=== PATIENT | male | born 1955 | race Caucasian/White ===

== ENCOUNTER 2018-05-11 12:08 | Day surgery (SDC) | payer BC ==
[~2018-05-11] VITALS: Ht 177.8 cm; Wt 91.6 kg
[~2018-05-11 12:08] MED LIST: ACID REDUCER75 MG PO; ASPIRIN325 MG PO; ATENOLOL50 MG PO; DYAZIDE 37.5-251 EA PO; FLOVENT DISKUS50 MCG INH; SUMATRIPTAN SU100 MG PO; ZYRTEC10 M3 PO
--- NOTE | 2018-05-11 14:09 | NUR ---
05/11/18 Adam9 Angelica Vu 1403 PT ARRIVED ON 3L VIA NC. PT DROWSY BUT TALKNG TO RN. PT REORINETED TO PACU. RESP EVEN AND UNLABORED.
--- NOTE | 2018-05-11 21:52 | OR ---
[facility] [address] [place], [place] [address] Signed DATE OF OPERATION: 05/11/2018 SURGEON: Kiana Bishop MD PREOPERATIVE DIAGNOSES: 1. Persistent gastroesophageal reflux symptoms. 2. Colon screening. POSTOPERATIVE DIAGNOSES: 1. Hiatal hernia with distal esophagitis. 2. Extensive diverticulosis of colon. 3. Mild hyperplasia of ileocecal valve. PROCEDURES: 1. Esophagogastroduodenoscopy with biopsy. 2. Total colonoscopy to cecum with biopsy of ileocecal valve. ANESTHESIA: Intravenous sedation, fentanyl 150 mcg, Versed 6 mg (total). INDICATION: A 62-year-old white man is a patient of Rm Pulido PA-C and is referred for persistent gastroesophageal reflux and epigastric pain symptoms. He is taking Zantac for this. He is admitted to undergo upper endoscopy to better characterize the problem. He is not particularly having dysphagia at this time. He does have a brother with Parks's esophagus. He has not had esophageal evaluation in the past. Additionally, the patient is here for a screening colonoscopy. His last colonoscopy was in 2010, which showed diverticulosis and he had a diminutive polyp in 2003. He understands the risks of bleeding, infection, perforation related upper endoscopy and colonoscopy and wished to proceed. FINDINGS: Upper endoscopy demonstrated a moderate to large-sized hiatal hernia with obvious distal ulcerative esophagitis. There was no sign of obvious Parks's epithelium. Stomach and duodenum are reasonably normal otherwise. Colonoscopy demonstrated very well prepared colon with extensive diverticulosis extending from the sigmoid to the right colon. He had mild hyperplasia of the ileocecal Electronically Signed By: KIANA BISHOP MD 05/11/18 2152 PATIENT NAME: NOVA DENNY OPERATIVE REPORT DATE OF : 53 REPORT #: [id number] PHYSICIAN: KIANA BISHOP MD PCP: FAHEEM RUIZ PAC REPORT IS CONFIDENTIAL AND NOT TO BE RELEASED WITHOUT AUTHORIZATION [facility] [address] [place], [place] [address] Signed valve. A biopsy was obtained, but he did not have obvious adenomatous change. There were no other findings of concern. DESCRIPTION OF PROCEDURE: The patient was brought to the endoscopy suite and given topical Hurricaine spray hypopharyngeal anesthesia and placed in lateral decubitus position given intravenous sedation to the point of slurred speech and nystagmus. A bite block was placed. An Olympus video upper endoscope was passed in the hypopharynx. The vocal cords appeared normal. The scope was advanced to the esophagus throughout its length. It was normal except in the distal portion where there was obvious ulcerative esophagitis. No sign of neoplasm, stricture, varices, or Parks's epithelium particularly. Scope was advanced to the stomach, which was insufflated with air. Rugal folds appeared normal. Pylorus was normal. Scope was passed through into the duodenum, which was normal. Biopsies were taken of the duodenum to assess for celiac disease and the scope was withdrawn to the antrum of the stomach for biopsies for colon pathologic testing. Retroflexed view was undertaken showing a moderate to large-sized hiatal hernia. The scope was withdrawn to the distal esophagus where biopsies were taken and further withdrawal to the mid esophagus for biopsies were also taken. There was mild felinization of the esophagus, but no clear evidence of inflammatory change. Careful withdrawal of scope showed no other findings. The table was rotated and additional sedation was given. Digital rectal examination was performed, which was normal. An Olympus video colonoscope was passed in the rectum and manipulated throughout the colon ultimately intubating the cecum itself. The ileocecal valve was identified and appeared to have a hyperplastic appearing change, not adenomatous particularly. Biopsies obtained to distinguish this. Narrow band imaging was used as well. The scope was withdrawn from that point and examination throughout showed only diverticulosis extending from the right colon throughout the entire colon except of course of the rectum. Retroflexed view of the rectum was normal. Scope was removed and the patient was taken to recovery room in good condition. CONCLUDING DIAGNOSES: 1. Extensive diverticulosis of colon. 2. Hiatal hernia with distal esophagitis (ulcerative). PLAN: Change Zantac to Prilosec 20 mg daily. Maintain high-fiber diet. We will see him back in the office in 4 to 6 weeks and assess his progress. Electronically Signed By: KIANA BISHOP MD 05/11/18 215 PATIENT NAME: NOVA DENNY OPERATIVE REPORT DATE OF : 53 REPORT #: [id number] PHYSICIAN: KIANA BISHOP MD PCP: FAHEEM RUIZ PAC REPORT IS CONFIDENTIAL AND NOT TO BE RELEASED WITHOUT AUTHORIZATION [facility] [address] [place] [id number] Signed Kiana Bishop MD JM/MODL /[id number] cc: LAURE Barlow Copies: ~ Electronically Signed By: KIANA BISHOP MD 05/11/18 2152 PATIENT NAME: NOVA DENNY OPERATIVE REPORT DATE OF : 53 REPORT #: [id number] PHYSICIAN: KIANA BISHOP MD PCP: FAHEEM RUIZ PAC REPORT IS CONFIDENTIAL AND NOT TO BE RELEASED WITHOUT AUTHORIZATION
== END 2018-05-11 14:55 | disposition home or self-care (01) ==
LOC: OPS 12:08 → DS 12:08 → OPS 13:00 → DS 13:00 → OPS 14:55
PROVIDERS: Surgery
PROC: 0DB28ZX Excision of Middle Esophagus, Via Natural or Artificial Opening Endoscopic, Diagnostic (ICD-10-PCS; 2018-05-11)
PROC: 0DB38ZX Excision of Lower Esophagus, Via Natural or Artificial Opening Endoscopic, Diagnostic (ICD-10-PCS; 2018-05-11)
PROC: 0DBC8ZX Excision of Ileocecal Valve, Via Natural or Artificial Opening Endoscopic, Diagnostic (ICD-10-PCS; 2018-05-11)
PROC: 0DB98ZX Excision of Duodenum, Via Natural or Artificial Opening Endoscopic, Diagnostic (ICD-10-PCS; principal; 2018-05-11 13:00)
PROC: 0DB78ZX Excision of Stomach, Pylorus, Via Natural or Artificial Opening Endoscopic, Diagnostic (ICD-10-PCS; 2018-05-11 13:00)
DX: Z12.11 Encounter for screening for malignant neoplasm of colon (principal); K57.30 Diverticulosis of large intestine without perforation or abscess without bleeding; K21.0 Gastro-esophageal reflux disease with esophagitis; K44.9 Diaphragmatic hernia without obstruction or gangrene; K63.89 Other specified diseases of intestine; I10 Essential (primary) hypertension; Z98.890 Other specified postprocedural states; Z86.010 Personal history of colon polyps
CPT/HCPCS: 99153; G0500; J2250; J3010; J7120

== ENCOUNTER 2019-02-20 21:11 | Emergency (ER) | payer BC ==
[~2019-02-20] VITALS: Ht 182.9 cm; Wt 91.6 kg
[2019-02-20] MEDS ORDERED: LO-DOSE ASPIRIN81 M1 PO (21:45)
[2019-02-20] MEDS ORDERED: OMEPRAZOLE40 MG PO (21:45)
[2019-02-20] MEDS ORDERED: TRANSDERM-SCOP1 EACH TD (23:14)
== END 2019-02-20 23:39 | disposition home or self-care (01) ==
LOC: ED 21:11
DX: R51 Headache (principal); H81.399 Other peripheral vertigo, unspecified ear; I10 Essential (primary) hypertension; Z87.891 Personal history of nicotine dependence; Z79.899 Other long term (current) drug therapy
CPT/HCPCS: 70450; 80053; 85025; 99284-25; J1200; J1885; J2765

== ENCOUNTER 2019-10-11 12:53 | Day surgery (SDC) | payer BC ==
[~2019-10-11] VITALS: Ht 177.8 cm; Wt 95.2 kg
--- NOTE | ~2019-10-11 | OR ---
[facility] [address] [place], [place] [address] Draft DATE OF OPERATION: 10/11/2019 SURGEON: Kiana Bishop MD PREOPERATIVE DIAGNOSIS: Known gastroesophageal reflux, recent episode of nocturnal aspiration (severe). POSTOPERATIVE DIAGNOSIS: Hiatal hernia without associated esophagitis, gastritis or duodenitis. PROCEDURE: Esophagogastroduodenoscopy with biopsy. ANESTHESIA: Intravenous sedation, fentanyl 100 mcg, Versed 5 mg. INDICATION: This 63-year-old white man is a patient of Dr. Nova Denny and is known to have reflux, generally well controlled with PPI medication. He had an episode of nocturnal severe aspiration at least two weeks ago, which was really quite alarming to him. He is much better now that he is not eating late in the evening before bed and he continues to take Prilosec on a daily basis with good clinical result. He has no dysphagia. He is admitted at this time to undergo upper endoscopy. He understands the risks of bleeding, infection, and perforation. FINDINGS: The esophagus showed no sign of neoplasm, obvious Parks's epithelium or neoplasm or stricture. There was a hiatal hernia, which was relatively large in aggregate. The stomach itself was normal as was the duodenum. Biopsies were obtained throughout. CLOtest biopsy was -15 minutes postprocedure. It appears he has only the hiatal hernia, which likely accounted for the reflux episode and aspiration, but currently is free of problem. DESCRIPTION OF PROCEDURE: The patient was brought to the endoscopy suite, given topical Hurricaine spray hypopharyngeal anesthesia and placed in lateral decubitus position. A bite block was placed. Intravenous sedation was given to point of slurred speech and nystagmus with full cardiopulmonary monitoring. An Olympus video upper endoscope was passed in the hypopharynx. Vocal cords visualized. PATIENT NAME: NOVA DENNY OPERATIVE REPORT DATE OF : 53 REPORT #: [id number] PHYSICIAN: KIANA BISHOP MD PCP: NOVA EDNNY MD REPORT IS CONFIDENTIAL AND NOT TO BE RELEASED WITHOUT AUTHORIZATION [facility] [address] [place], [place] [address] Draft The cords had no sign of nodule. There was mild edema in the arytenoid folds. Scope was advanced to the esophagus without problem. Throughout its length, it was entirely normal. Narrow band imaging confirmed this as well. There was a somewhat irregular Z-line, but I would not claim this to be Parks's esophagus in any significant way. The scope was passed to the stomach, which was insufflated with air. Rugal folds were normal as was the pylorus. The scope was passed through it into the duodenum, which was normal. Biopsies were taken of the duodenum to assess for celiac disease. Careful withdrawal through the pyloric channel showed no sign of ulceration or stricture. The scope was withdrawn further and biopsies taken of the antrum and more proximal stomach for both ISAIAH and pathologic testing. Retroflexed view did show a sizable hiatal hernia in aggregate. There was no sign of Nolberto's ulcer. Scope was withdrawn to the distal esophagus where multiple biopsies were obtained. Narrow band imaging was used as well. Although the Z-line was rather irregular, this should not be mistaken for zonia Parks's esophagus. The scope was withdrawn and the midesophagus was biopsied as well. Further withdrawal showed no sign of proximal esophageal abnormalities. Re-evaluation of the vocal cords showed them to be normal without sign of nodule and less signs of edema than originally noted. The scope was removed. The patient was taken to recovery room in good condition. CONCLUDING DIAGNOSIS: Hiatal hernia with clinical gastroesophageal reflux and prior episode of significant aspiration, now resolved. Mindful of the potential risks of PPI use, I would recommend that he stay on Prilosec 20 mg a day. He should avoid eating late in the evening as much as possible. Operative management of hiatal hernia and reflux is always an option depending on patient preference. PLAN: We will see him back in 4-6 weeks and review his pathology reports and assess his progress. Kiana Bishop MD JM/MODL /[id number] PATIENT NAME: NOVA DENNY CAROLINE OPERATIVE REPORT DATE OF : 53 REPORT #: [id number] PHYSICIAN: KIANA BISHOP MD PCP: NOVA DENNY MD REPORT IS CONFIDENTIAL AND NOT TO BE RELEASED WITHOUT AUTHORIZATION [facility] [address] [place], [place] [address] Draft cc: Nova Denny MD Copies: NOVA DENNY DMD ~ PATIENT NAME: NOVA DENNY OPERATIVE REPORT DATE OF : 53 REPORT #: [id number] PHYSICIAN: KIANA BISHOP MD PCP: NOVA DENNY MD REPORT IS CONFIDENTIAL AND NOT TO BE RELEASED WITHOUT AUTHORIZATION
[~2019-10-11 12:53] MED LIST changes: +LO-DOSE ASPIRIN81 M1 PO; +OMEPRAZOLE40 MG PO; +TRANSDERM-SCOP1 EACH TD
--- NOTE | 2019-10-11 13:54 | NUR ---
10/11/19 1354 [facility] [address]-PT ARRIVES TO PACU AWAKE ON RA. PT DENIES PAIN/NAUSEA. SAT S>90%. OTHER VSS.
--- NOTE | 2019-10-12 14:33 | PATH ---
[facility] [address] [facility] [place] [place] [address] Signed SPECIMEN(S): A DUODENUM SPECIMEN(S): B ANTRUM/PYLORUS SPECIMEN(S): C LOWER ESOPHAGUS SPECIMEN(S): D MIDDLE ESOPHAGUS SPECIMEN SOURCE: A. DUODENUM B. ANTRUM/PYLORUS C. LOWER ESOPHAGUS D. MIDDLE ESOPHAGUS CLINICAL HISTORY: Abdominal pain, GERD. Postop: Hiatal hernia. MICROSCOPIC DESCRIPTION: A, B. Histologic sections of all submitted blocks are examined by light microscopy. These findings, together with the gross examination, support the pathologic diagnosis. C. Sections reveal biopsies of esophageal mucosa composed of stratified squamous nonkeratinizing epithelium. The basal cell layer is not prominent and rete ridges are not elongated. A rare intraepithelial lymphocyte is seen. Intraepithelial eosinophils are not a feature. No glandular mucosa is present. There is no evidence of malignancy or atypia. D. Sections reveal biopsies of esophageal mucosa histologically similar to that described above in C. LJA:cml FINAL PATHOLOGIC DIAGNOSIS: A. Mucosa, duodenum, biopsy: - Duodenal mucosa with normal villous architecture, no microscopic pathologic diagnosis. B. Mucosa, antrum, biopsy: - Minimal to mild inactive chronic gastritis. - Negative for the presence of bacteria morphologically consistent with Helicobacter on HE stained sections. C. Mucosa, lower esophagus, biopsy: - No microscopic pathologic diagnosis. D. Mucosa, mid esophagus, biopsy: - No microscopic pathologic diagnosis. LJA:cml:C2NR PATIENT NAME: NOVA DENNY PATHOLOGY DATE OF : 53 REPORT #: [id number] PHYSICIAN: DIONNE DINH PCP: NOVA DENNY MD REPORT IS CONFIDENTIAL AND NOT TO BE RELEASED WITHOUT AUTHORIZATION [facility] [address] [place], [place] [address] Signed GROSS DESCRIPTION: Four specimens are received in four containers, labeled "RJ." A. The specimen, labeled "RJ, 1" and "duodenum" on the requisition, is received in formalin and consists of a 0.3 cm soft vargas tissue fragment that is submitted in toto in cassette A1. B. The specimen, labeled "RJ, 2" and "antrum/pylorus" on the requisition, is received in formalin and consists of a 0.3 cm soft pink tissue fragment that is submitted in toto in cassette B1. C. The specimen, labeled "RJ, 3" and "lower esophagus" on the requisition, is received in formalin and consists of two soft pink to elliott flat tissue fragments that measure 0.2 and 0.3 cm that are submitted in toto in cassette C1. D. The specimen, labeled "RJ, 4" and "middle esophagus" on the requisition," is received in formalin and consists of three soft elliott flat tissue fragments that vary from 0.2-0.4 cm and are submitted in toto in cassette D1. SS (under the direct supervision of a pathologist) The Gross Description was prepared using a voice recognition system. The report was reviewed for accuracy; however, sound-alike word errors, addition and/or deletions may occur. If there is any question about this report, please contact Client Services. PERFORMING LABORATORY: The technical component was performed by [employer], [address] [place] [id number] (Applications Programmer: Madalyn Luke MD; CLIA# [id number]). Professional interpretation was performed by [employer], [facility], [address] [place] [address] (CLIA# [id number]). Diagnostician: Onofre Ledesma MD Pathologist Electronically Signed 10/12/2019 Copies: ~ PATIENT NAME: NOVA DENNY PATHOLOGY DATE OF : 53 REPORT #: [id number] PHYSICIAN: DIONNE DINH PCP: NOVA DENNY MD REPORT IS CONFIDENTIAL AND NOT TO BE RELEASED WITHOUT AUTHORIZATION
== END 2019-10-11 14:24 | disposition home or self-care (01) ==
LOC: OPS 12:53 → DS 14:00 → OPS 14:24
PROVIDERS: Surgery
PROC: 0DB78ZX Excision of Stomach, Pylorus, Via Natural or Artificial Opening Endoscopic, Diagnostic (ICD-10-PCS; 2019-10-11)
PROC: 0DB38ZX Excision of Lower Esophagus, Via Natural or Artificial Opening Endoscopic, Diagnostic (ICD-10-PCS; 2019-10-11)
PROC: 0DB28ZX Excision of Middle Esophagus, Via Natural or Artificial Opening Endoscopic, Diagnostic (ICD-10-PCS; 2019-10-11)
PROC: 0DB98ZX Excision of Duodenum, Via Natural or Artificial Opening Endoscopic, Diagnostic (ICD-10-PCS; principal; 2019-10-11 14:00)
DX: T17.910A Gastric contents in respiratory tract, part unspecified causing asphyxiation, initial encounter (principal); K29.50 Unspecified chronic gastritis without bleeding; K21.9 Gastro-esophageal reflux disease without esophagitis; K44.9 Diaphragmatic hernia without obstruction or gangrene; G43.909 Migraine, unspecified, not intractable, without status migrainosus; I10 Essential (primary) hypertension; Z86.010 Personal history of colon polyps; Z79.899 Other long term (current) drug therapy; Z87.891 Personal history of nicotine dependence
CPT/HCPCS: G0500; J2250; J3010; J7121

== ENCOUNTER 2020-07-24 07:55 | Day surgery (SDC) | payer BC ==
[~2020-07-24] VITALS: Ht 177.8 cm; Wt 95.0 kg
--- NOTE | 2020-07-24 11:03 | NUR ---
07/24/20 1103 Layla Obando 1055- PT ARRIVES TO PACU NONAROUSABLE TO NOXIOUS STIMULI WITH AN OPA IN PLACE. RESP EVEN AND UNLABORED. OXYGEN SAT HIGH 90'S TO 100% ON 6L VIA MASK.
[2020-07-24] MEDS ORDERED: IBUPROFEN600 MG PO (11:17)
[2020-07-24] MEDS ORDERED: OXYCODON-ACETA1 EAC2 PO (11:18)
[2020-07-24] MEDS ORDERED: MAPAP500 M1 PO (11:21)
--- NOTE | 2020-07-24 11:45 | NUR ---
ON RETURN FROM PACU OOZING FROM LIVER BX SITE CLEANED UP AND GUAZE TAPED OVER SITE.
--- NOTE | 2020-07-24 12:30 | NUR ---
PATIENT UP TO BATHROOM, GAUZE SATURATED AT UNBILICAL SITE AND LIGHTLY SATURATED AT LIVER BIOPSY SITE. PATIENT VOID WELL, STEADY ON FEET. BACK TO BED, PROVIDED PUDDING AND APPLESAUCE. PATIENT REPORTS NO PAIN. VSS.
--- NOTE | 2020-07-24 12:34 | NUR ---
OOZING FROM LIVER BX SITE. CLEANED UP AND NEW GUAZE PLACED OVER STERI STRIPS.
--- NOTE | 2020-07-24 12:39 | NUR ---
UMBILICAL LAP SITE OOZING. REINFORCED WITH GAUZE. ABDOMEN FEELS SOFT AND PT DENIES INCREASING PAIN WITH ABDOMINL EXAM. REPORT GIVEN TO PRIMARY RN OF THE CARE AND ASSESSMENT I PROVIDED.
--- NOTE | 2020-07-24 13:59 | NUR ---
PATIENT REPORTED FEELING DRIPPING DOWN SIDE, PATIENT SATURATED GAUZE AT LIVER BIPOSY LAP SITE. CHANGED GAUZE AND REINFORCED WITH PAPER TAPE. NOTED INCREASED FIRMNESS TO ABDOMEN. PATIENT ALERT AND ORIENTED, REPORTS NO PAIN. PATIENT REPORTED RASH TO LEFT HAND. DR. BISHOP NOTIFIED ABOUT INCREASED BLEEDING FROM LAP SITE.
--- NOTE | 2020-07-24 14:35 | NUR ---
DR. BISHOP IN TO SEE PATIENT, THEN REMOVED STERI STRIPS AND ATTEMPTED TO STOP BLEED. PLAN TO STITCH LAP SITE. PATIENT THEN UP TO BATHROOM, GAUZE SARTURATED THROUGH TO GOWN. CLEANSED SURROUND AREA WITH SALINE AND GAUZE. THEN APPLIED DRY GAUZE TO LIVER BIOSPY SITE WITH PAPER TAPE THEN ABD FOLDED ON TOP REINFORCED WITH PAPER TAPE. CALL LIGHT WITHIN REACH NO OTHER NEEDS AT THIS TIME.
--- NOTE | 2020-07-24 15:09 | NUR ---
ASSISTED DR. BISHOP WITH STOPPING BLEED AT LAP SITE WITH STITCHES. PATIENT TOLERATED PROCEDURE WELL. BLEEDING STOPPED. PATIENT REPORTS PAIN WELL CONTROLLED. VSS.
--- NOTE | 2020-07-24 15:30 | NUR ---
PATIENT BLEEDING HAS STOPPED. LAP SITES C/D/I. PATIENT REQUESTED TO DISCHARGE HOME. PROVIDED DISCHARGE INSTRUCTION, ADDRESSED QUESTIONS AND CONCERNS. VSS. PROVIDED PATIENT WITH COPY OF PICTURES AND SCRIPT FOR MEDICATION. PATIENT THEN TO WHEELCHAIR AND PROVIDED RIDE OUT TO POV. PATIENT TRANSFERED INTO WHEELCHAIR WELL.
--- NOTE | 2020-07-24 15:39 | OR ---
[facility] [address], [place] [address] Signed DATE OF OPERATION: 07/24/2020 SURGEON: Kiana Bishop MD PREOPERATIVE DIAGNOSES: 1. Acalculous cholecystitis. 2. Multiple hepatic nodules, probably consistent with hepatic steatosis. POSTOPERATIVE DIAGNOSES: 1. Acalculous cholecystitis. 2. Multiple hepatic nodules, probably consistent with hepatic steatosis, without overt and obvious nodules of liver. 3. Low-grade cirrhotic changes (clinical diagnosis). PROCEDURES: 1. Laparoscopic cholecystectomy with intraoperative cholangiogram. 2. Surgeon-directed fluoroscopy. 3. Percutaneous core liver biopsy of right lobe of liver. ANESTHESIA: General endotracheal, Phillip Starr CRNA INDICATIONS: This 64-year-old white man is a patient of Dr. Nova Denny and has had right upper abdominal pain, highly typical of biliary colic. He was evaluated in August 2018 with ultrasound showing no sign of gallstones, but did show hepatic lesions initially thought possibly metastatic and gallbladder evaluation with CCK-HIDA scan with an ejection fraction of 96%. CT scan and ultimately MRI of the liver were obtained, and the lesions of the liver were thought unlikely to be adenomatous or cyst, but rather fatty hepatic nodules. The patient is not known to have a family history of biliary problems or hepatic problems. He has been monitored over time, and although the nodules of the liver are largely unchanged, he has increasing symptoms of right upper abdominal pain, particularly following meals. Indeed, his symptoms are highly typical of biliary colic. The CT scan of the abdomen performed on April 15, 2020, showed a single cyst and difficult to affirm multiple hepatic lesions. Rather than repeating his biliary workup for symptomatic gallstones, I have recommended laparoscopy and cholecystectomy with cholangiogram as well as liver biopsy, hopefully of a visible hepatic lesion. He and his understand the risks of bleeding, infection, failure to cure his symptoms, nondiagnostic liver biopsy, and so on, particularly as it is uncertain if the lesion would be visible extrinsically. Understand this, they wished to proceed. Electronically Signed By: KIANA BISHOP MD 07/24/20 1539 PATIENT NAME: NOVA DENNY OPERATIVE REPORT DATE OF : 53 REPORT #: [id number] PHYSICIAN: KIANA BISHOP MD PCP: NOVA DENNY MD REPORT IS CONFIDENTIAL AND NOT TO BE RELEASED WITHOUT AUTHORIZATION [facility] [address], [place] [address] Signed FINDINGS: There was no evidence of ascites. The liver had a low-grade nodular changes throughout, suggestive of early cirrhosis. There is certainly no clear evidence of hepatic cirrhosis. Palpation of the liver transabdominally did not reveal distinct nodule, but insurance account representative area of the liver in the right lobe was biopsied by conclusion of the procedure. As regards the gallbladder, there were multiple omental adhesions to the undersurface of the liver and the gallbladder, which were taken down and the gallbladder itself appeared to be chronically inflamed. Once excised, adenosis of the gallbladder mucosa was noted without signs of stones proper. Cholangiogram was essentially normal. There were no other findings of concern. DESCRIPTION OF PROCEDURE: The patient was brought to the operating room, given a general endotracheal anesthetic. Preoperative antibiotic Ancef was given. Sequential compression device stockings used and heparin subcutaneously administered. The abdomen was prepared with a chlorhexidine solution and draped sterilely. An infraumbilical incision was made and using an open Bg cannula technique, pneumoperitoneum achieved to a level of 14 mmHg of carbon dioxide gas. Intraabdominal inspection showed no sign of ascites or carcinomatosis. The liver was closely evaluated and found to have a somewhat nodular appearance with blunted liver edge. Most likely, a fatty liver with possible steatohepatitis was likely. There were no overt obvious large lesions of the liver proper. The gallbladder was largely obscured from view due to omental adhesions on the undersurface of the liver. Three additional trocars were placed in usual configuration in the subxiphoid, right midclavicular, and right anterior axillary line. The adhesions to the undersurface of the liver edge and the gallbladder were taken down with blunt and electrocautery dissection. This allowed for the gallbladder to be grasped and elevated cephalad. It appeared chronically inflamed, dull elliott appearance. Lateral retraction of the infundibulum of gallbladder was undertaken using blunt and electrocautery dissection. The triangle of Calot was dissected free ultimately, identifying well the cystic duct. The cystic arterial branches were clipped as well. A clip was applied across the gallbladder and cystic duct junction and a transverse choledochotomy was made in the cystic duct. Retrograde milking of the duct showed no sign of stones or debris. Using the Bueno type cholangiocatheter, intraoperative cholangiography was undertaken using surgeon-directed fluoroscopy. Free flow of contrast was noted in the biliary tree with prompt emptying into the duodenum. There was no filling defect of biliary anomaly. The short length concurrent pancreatogram was noted, but there was no sign of neoplasm or stricture in the confluence of the common bile duct in the pancreatic duct. The catheter was removed. The cystic duct was triply clipped and divided. The gallbladder was dissected free in a retrograde fashion using electrocautery it was placed in an endobag and extracted through the infraumbilical port site, opened on the back table and found to have adenomyosis and no evidence of stones or neoplasm. Electronically Signed By: KIANA BISHOP MD 07/24/20 1539 PATIENT NAME: NOVA DENNY OPERATIVE REPORT DATE OF : 53 REPORT #: [id number] PHYSICIAN: KIANA BISHOP MD PCP: NOVA DENNY MD REPORT IS CONFIDENTIAL AND NOT TO BE RELEASED WITHOUT AUTHORIZATION [facility] [address], [place] [address] Signed Electrocautery was used to assure hemostasis on the liver bed. Attention was turned towards the liver. Careful scanning of the liver did not show overt lesions of the surface of the liver, only a relatively coarse texture. An area in the caudate lobe appeared possibly to have nodular change, but with manipulations was less likely to be so. Mindful of an intention to biopsy a specific nodule rather than random biopsy of the liver, the epigastric port site was utilized to allow for transabdominal palpation with the index finger of liver parenchyma. The so-called "endo finger" failed to find any specific nodule. All of the consistency of the liver somewhat firm and rubbery and indeterminately discretely nodular. On that basis, an area that had some apparent scarring in the right lobe of the liver just at the junction of the medial segment of the left lobe of the liver was outlined for biopsy. Percutaneous guidance of the biopsy gun device to that area was undertaken allowing for a core biopsy of the right lobe of the liver. A site which had some bleeding was secured with electrocautery without problem. A good core specimen was obtained. Irrigation was undertaken more fully. Inspection of the undersurface of the liver undertaken showing good hemostasis. Dorene powdered hemostatic agent was then insufflated in the subhepatic space as well as at the liver biopsy site though neither were actively bleeding. Excess irrigation fluid was suctioned free. The trocars removed under direct visualization showing no sign of bleeding. The infraumbilical fascial incision reapproximated with interrupted 0-Vicryl suture. All wounds were copiously irrigated with saline solution. Skin closed with interrupted 3-0 Vicryl after application of 20 mL of 0.25% Marcaine with epinephrine. The skin was closed with interrupted 2-0 Vicryl and Steri-Strips were applied. He was ultimately extubated and transferred to the recovery room in good condition, having suffered no complications. Sponge, needle, and instrument counts were reported as correct x3. Kiana Bishop MD JM/MODL /[id number] Electronically Signed By: KIANA BISHOP MD 07/24/20 1539 PATIENT NAME: DENISHANOVA OPERATIVE REPORT DATE OF : 53 REPORT #: [id number] PHYSICIAN: KIANA BISHOP MD PCP: NOVA DENNY MD REPORT IS CONFIDENTIAL AND NOT TO BE RELEASED WITHOUT AUTHORIZATION [facility] [address], [place] [address] Signed cc: Nova Denny MD Copies: DENISHA,NOVA D DMD ~ Electronically Signed By: KIANA BISHOP MD 07/24/20 1539 PATIENT NAME: NOVA DENNY OPERATIVE REPORT DATE OF : 53 REPORT #: [id number] PHYSICIAN: KIANA BISHOP MD PCP: NOVA DENNY MD REPORT IS CONFIDENTIAL AND NOT TO BE RELEASED WITHOUT AUTHORIZATION
--- NOTE | 2020-07-28 15:26 | PATH ---
[facility] [address], [place] [address] Signed SPECIMEN(S): A GALLBLADDER SPECIMEN(S): B MEDIAL SEGMENT, RIGHT LOBE SPECIMEN SOURCE: A. GALLBLADDER B. MEDIAL SEGMENT, RIGHT LOBE CLINICAL HISTORY: Laparoscopic cholecystectomy with liver biopsy. Biliary colic, liver lesions. FINAL PATHOLOGIC DIAGNOSIS: A. Gallbladder, cholecystectomy: - Chronic cholecystitis with cholesterolosis. B. Liver, medial segment, right lobe, needle core biopsy: - Benign hepatic tissue with no significant pathologic features. - See comment. COMMENT: Regarding specimen B: The clinical history of right upper quadrant pain, multiple liver lesions, and a right lobe hepatic cyst is noted. Sections demonstrate benign liver parenchyma with mixed large and small droplet macrovesicular steatosis (15%) and focal minimal Gracie's hyaline. No lobular necroinflammation or ballooning hepatocytes are seen. There are too few portal tracts for complete evaluation, but the portal tracts present have a mild mixed inflammatory cell infiltrate with lymphocytes (predominant), rare eosinophils, and rare neutrophils; interface change is not present. Bile ducts are normal in number and demonstrate no signs of injury. Focally, portal tracts are closer than expected. Trichrome and reticulin stains shows minimal perisinusoidal fibrosis. No evidence of Alpha-1 antitrypsin deficiency is seen with PAS/D stain. Hepatocytes demonstrate mild abnormal iron accumulation (1+) with iron stain. Overall, the findings are non-specific and raise the possibility of fatty liver disease. No evidence of malignancy is seen. As part of [facility] Quality Improvement Program, the liver biopsy was reviewed by another member of our pathology staff with subspecialty training in liver/gastrointestinal pathology (NGUYEN). NAL:cml:C2NR MICROSCOPIC EXAMINATION: PATIENT NAME: NOVA DENNY PATHOLOGY DATE OF : 53 REPORT #: [id number] PHYSICIAN: DIONNE PATHOLOGY PCP: NOVA DENNY MD REPORT IS CONFIDENTIAL AND NOT TO BE RELEASED WITHOUT AUTHORIZATION [facility] [address], [place] [address] Signed Histologic sections of all submitted blocks are examined by light microscopy. Standard liver special stains (with appropriately staining controls) for iron, reticulin, PAS/D, and iron were performed and results in the Comment section. These findings, together with the gross examination, support the pathologic diagnosis. GROSS DESCRIPTION: Two specimens are received in two containers, labeled "RJ." A. The specimen, labeled "RJ, A.," and designated on the requisition "gallbladder," is received in formalin and consists of Specimen: Previously opened gallbladder. Dimensions: 7.7 x 2.5 x 1.4 cm. Serosa: Lawson-green and smooth with adipose tissue and prominent congested area. Cystic Duct: Unobstructed. Calculi: Not grossly identified. Mucosa: Green-light brown with yellow flecking. Wall thickness: Up to 0.7 cm. Lymph node: No pericystic lymph nodes are grossly identified. Additional: Subserosal hemorrhagic area near fundus (underlying the serosal congestion). Offc Spec sections are submitted in cassette (A1). B. The specimen, labeled "RJ, B.," and designated on the requisition "medial segment right lobe of liver," is received in formalin and consists of one dark lawson, cylindrical tissue core and fragment measuring 0.1 cm in diameter and ranging 0.2-1.3 cm in length. Tissue core and fragment inked with eosin and entirely submitted in cassette (B1). AT (under the direct supervision of a pathologist) The Gross Description was prepared using a voice recognition system. The report was reviewed for accuracy; however, sound-alike word errors, addition and/or deletions may occur. If there is any question about this report, please contact Client Services. PERFORMING LABORATORY: The technical component was performed by [facility] [address] (Cath Lab Tech: Madalyn Luke MD; CLIA# [id number]). [facility], [address] [address] (CLIA# [id number]). Diagnostician: Juliet Mariscal MD Pathologist PATIENT NAME: NOVA DENNY PATHOLOGY DATE OF : 53 REPORT #: [id number] PHYSICIAN: DIONNE DINH PCP: NOVA DENNY MD REPORT IS CONFIDENTIAL AND NOT TO BE RELEASED WITHOUT AUTHORIZATION [facility] [address], [place] [address] Signed Electronically Signed 07/28/2020 Copies: ~ PATIENT NAME: NOVA DENNY PATHOLOGY DATE OF : 53 REPORT #: [id number] PHYSICIAN: DIONNE PATHOLOGY PCP: NOVA DENNY MD REPORT IS CONFIDENTIAL AND NOT TO BE RELEASED WITHOUT AUTHORIZATION
== END 2020-07-24 15:30 | disposition home or self-care (01) ==
LOC: DS 07:55
PROVIDERS: ATTEND Surgery
PROC: 0F913ZX Drainage of Right Lobe Liver, Percutaneous Approach, Diagnostic (ICD-10-PCS; 2020-07-24)
PROC: 0FT44ZZ Resection of Gallbladder, Percutaneous Endoscopic Approach (ICD-10-PCS; principal; 2020-07-24 08:30)
PROC: BF13YZZ Fluoroscopy of Gallbladder and Bile Ducts using Other Contrast (ICD-10-PCS; 2020-07-24 08:30)
DX: K81.1 Chronic cholecystitis (principal); K76.89 Other specified diseases of liver; I10 Essential (primary) hypertension; G43.909 Migraine, unspecified, not intractable, without status migrainosus; K21.00 Gastro-esophageal reflux disease with esophagitis, without bleeding; Z79.899 Other long term (current) drug therapy; Z86.010 Personal history of colon polyps; Z87.891 Personal history of nicotine dependence
CPT/HCPCS: 00790; 74300; J0690; J1100; J1644; J1885; J2001; J2704; J3010; J7121; Q9967

== ENCOUNTER 2021-08-26 05:45 | Day surgery (SDC) | payer BC ==
[~2021-08-26] VITALS: Ht 182.9 cm; Wt 89.5 kg
--- NOTE | ~2021-08-26 | OR ---
[facility] [address], [place] [address] Draft DATE OF OPERATION: 08/26/2021 SURGEON: Rm Howard DPM PREOPERATIVE DIAGNOSIS: Hallux rigidus, left foot. POSTOPERATIVE DIAGNOSIS: Hallux rigidus, left foot. ANESTHESIA: IV general with local block, left foot. COMMUNITY OUTREACH MANAGER: Wu Naranjo CRNA SPECIMENS TO PATHOLOGY: None. PROCEDURE PERFORMED: Hallux rigidus correction with implant, left first MPJ. DESCRIPTION OF PROCEDURE: The patient was brought to the operating room and placed on the table in the supine position. Anesthesia Department administered IV sedation after which a local block was given to the left foot using a total of 9 mL of 1:1 mixture of 2% lidocaine plain and 0.5% ropivacaine plain. The left leg and foot were then prepped and draped in the usual sterile manner and an Esmarch was used for hemostasis. Attention was initially directed to the left first MPJ, where a linear longitudinal incision was made approximately 1 cm medial to the extensor hallucis longus tendon. The incision was approximately 6 cm in length and centered over the joint. The incision was initially full-thickness through the dermis, then deepened through subcutaneous tissue using careful dissection and cautery as necessary for hemostasis. Once at the level of deep fascia and joint capsule, the incision was deepened to bone reflecting soft tissue medially and laterally to fully expose the first metatarsophalangeal joint using hand and power instrumentation. The bony proliferation, bony spurring around the first metatarsal head was resected, then also from the base of the proximal phalanx. At this time, power instrumentation was used to resect bone from the head of the first metatarsal, removing the joint surface. The cartilage was noted to be severely worn and PATIENT NAME: NOVA DENNY OPERATIVE REPORT DATE OF : 53 REPORT #: [id number] PHYSICIAN: RM HOWARD DPM PCP: NOVA DENNY MD REPORT IS CONFIDENTIAL AND NOT TO BE RELEASED WITHOUT AUTHORIZATION [facility] [address], [place] [address] Draft 4-5 mm of bone was removed from the first metatarsal head ensuring that the bone cut was properly aligned in both transverse and sagittal planes. Attention was then directed to the base of the proximal phalanx, where approximately 4-5 mm of bone was removed. At this point, the position of the osteotomy surfaces to the metatarsal and phalangeal sides of the joint were examined and the position to the toe examined, which showed slight corrections necessary to gain proper alignment once these were made, then the process of creating the hole within the first metatarsal and into the proximal phalanx to receive the stem of the Crouch style implant. Using hand and power instrumentation, the hole was made for the implant. The metal grommets were also used and the implant properly sized and then fitted into the joint. The position of the implant and the alignment of the toe examined. This was noted to have achieved proper alignment and the surgical site then irrigated with copious amounts of normal saline. The bone of the first metatarsal head and base of the proximal phalanx was then smoothed to remove the sharp corners using hand instrumentation and a hand rasp. The surgical site was then irrigated again with normal saline, then bone wax applied to the exposed bone surface around the margins of the bone resection. At this time, deep soft tissue was closed using 3-0 Vicryl. Subcutaneous tissue closed using 4-0 Vicryl and skin closed using skin cornelia. INTRAOPERATIVE COMPLICATIONS: None. ESTIMATED BLOOD LOSS: Less than 5 mL. Note, once the implant was in place prior to closure, alignment and positioning was verified with use of intraoperative fluoroscopy. The patient tolerated the procedure and the anesthesia well and left the operating room with vital signs stable and vascular status intact to the left foot as evidenced by hyperemia with removal of the Esmarch. Prior to placement of the dressings, a postoperative injection was given using a total of 10 mL of 9:1 mixture of 0.5% ropivacaine plain and dexamethasone phosphate 4 mg/mL. DRESSINGS: Dressings applied consisting of Adaptic, Betadine-soaked gauze, dry gauze, Flexicon, and Coban for mild compression as well as to splint the position to the toe. PATIENT NAME: DENISHANOVA VELAZQUEZ OPERATIVE REPORT DATE OF : 53 REPORT #: [id number] PHYSICIAN: RM HOWARD DPM PCP: NOVA DENNY MD REPORT IS CONFIDENTIAL AND NOT TO BE RELEASED WITHOUT AUTHORIZATION [facility] [address] [place] [address] Draft JASMYNE King/MODBarbara /[id number] Copies: ~ PATIENT NAME: NOVA DENNY OPERATIVE REPORT DATE OF : 53 REPORT #: [id number] PHYSICIAN: RM HOWARD DPM PCP: NOVA DENNY MD REPORT IS CONFIDENTIAL AND NOT TO BE RELEASED WITHOUT AUTHORIZATION
[~2021-08-26 05:45] MED LIST changes: +COZAAR25 MG PO; +CYCLOBENZAPRINE10 MG PO; +IBUPROFEN600 MG PO; +MAPAP500 M1 PO; +OXYCODON-ACETA1 EAC2 PO
[2021-08-26] MEDS ORDERED: ZINC30 MG PO (06:12)
[2021-08-26] MEDS ORDERED: VITAMIN D3125 MC1 PO (06:13)
--- NOTE | 2021-08-26 09:15 | NUR ---
PT ARRIVES TO DS RM 5 FROM PACU AWAKE AND ALERT. PT DENIES ANY PAIN OR NAUSEA, HAS WATER IN HAND AND TOLERATES SIPS. PT REQUESTS COFFEE, PROVIDED COFFEE AND CRACKERS. SPOUSE AT BEDSIDE, CALL LIGHT WITHIN REACH. DC CRITERIA EXPLAINED TO PT.
--- NOTE | 2021-08-26 09:19 | NUR ---
08/26/21 09 Kylah Hsieh 0844 PT ARRIVED IN PACU SLEEPY WITH NO C/O'S. 0858 3 VIEW XRAY OF L FOOT DONE. SIPPING ON WATER. 904 TO DS. REPORT GIVEN TO RN. NO C/O'S. AT BEDSIDE.
--- NOTE | 2021-08-26 10:34 | NUR ---
1015: PT AWAKE AND ALERT IN BED DRINKING COFFEE AND CONVERSING WITH . VSS, RESP EVEN AND UNLABORED. DENIES PAIN AND NAUSEA. DANGLES AT THE BEDSIDE AND DENIES DIZZINESS AND SOB. SMALL AMOUNT OF RED DRAINAGE NOTED ON THE DRESSING AT THE BIG TOE. REINFORCED WITH GAUZE AND COBAN. PT DRESSED WITH ASSISTANCE AND BOOT PLACED ON OPERATIVE EXTREMITY. AMBULATES TO BR WITH STANDBY ASSIST FROM THIS RN, STEADY GAIT. SUCCESSFUL POSTOP VOID, 300ML. BACK TO ROOM 6. SL REMOVED WITH CATH TIP INTACT AND PRESSURE APPLIED TO SITE, WNL.
== END 2021-08-26 10:35 | disposition home or self-care (01) ==
LOC: OPS 05:45 → DS 05:45 → OPS 06:45
PROVIDERS: ATTEND Podiatrist Foot Surgery
PROC: 0SRN0JZ Replacement of Left Metatarsal-Phalangeal Joint with Synthetic Substitute, Open Approach (ICD-10-PCS; principal; 2021-08-26 06:45)
DX: M20.22 Hallux rigidus, left foot (principal); Z20.822 Contact with and (suspected) exposure to COVID-19
CPT/HCPCS: 73620; 73630; C1776; J0330; J0461; J0690; J1100; J1885; J2001; J2250; J2405; J2704; J2765; J2795; J3010; J7121

== ENCOUNTER 2021-11-05 19:43 | Emergency (ER) | payer BC ==
[~2021-11-05] VITALS: Ht 182.9 cm; Wt 90.7 kg
[~2021-11-05 19:43] MED LIST changes: +VITAMIN D3125 MC1 PO; +ZINC30 MG PO
--- OUTSIDE RECORDS SUMMARY | 2021-11-05 20:30 | XMS ---
PreManage Notification: NOVA DENNY Security [employer]anger Events No recent Security Events currently on file CRITERIA MET - ED - Positive COVID-19 Lab Result - [facility] PROVIDERS DENISHA NOVA [facility] Current PHONE: [phone] [place] has no Care Guidelines for this patient. E.D. VISIT COUNT (12 MO.) 1 TIO Bassett TOTAL 1 NOTE: Visits indicate total known visits. ED/UCC VISIT TRACKING (12 MO.) 11/05/2021 19:43 TIO Fuchs OR TYPE: Emergency COMPLAINT: - DIZZINESS INPATIENT VISIT TRACKING (12 MO.) No inpatient visits to display in this time frame [email or web address]
[2021-11-05] MEDS ORDERED: MECLIZINE HCL25 MG PO (22:25)
--- NOTE | 2021-11-06 06:36 | EKG ---
[facility] [address] [facility] [place] [address] Signed Sinus rhythm with 1st degree AV block Otherwise normal ECG No previous ECGs available Confirmed by HIMANSHU REDD MD ([id number]) on 11/06/2021 6:35:56 AM Electronically Signed By: HIMANSHU REDD MD 11/06/21 0636 PATIENT NAME: NOVA DENNY Electrocardiogram DATE OF : 53 PHYSICIAN: HIMANSHU REDD MD REPORT #: [id number] REPORT IS CONFIDENTIAL AND NOT TO BE RELEASED WITHOUT AUTHORIZATION
== END 2021-11-05 22:47 | disposition home or self-care (01) ==
LOC: ED 19:43
DX: R42 Dizziness and giddiness (principal); I10 Essential (primary) hypertension; E78.00 Pure hypercholesterolemia, unspecified; K21.9 Gastro-esophageal reflux disease without esophagitis; G43.909 Migraine, unspecified, not intractable, without status migrainosus; Z87.891 Personal history of nicotine dependence; Z79.899 Other long term (current) drug therapy
CPT/HCPCS: 36415; 70450; 70496; 70498; 80048; 81001; 83735; 84484; 85025; 93005; 93010; 99284-25; A9270; Q9967